=== PATIENT | female | born 1970 | race Caucasian/White ===

== ENCOUNTER 2016-10-04 11:34 | Emergency (ER) | payer OTHER ==
[~2016-10-04] VITALS: Ht 172.7 cm; Wt 81.7 kg
[~2016-10-04 11:34] MED LIST: IMURAN50 MG PO; LOESTRIN FE 1-1 EACH PO; NORCO 5-325 TA1 EACH PO; PLAQUENIL200 MG PO; PRILOSEC20 MG PO; VALIUM5 MG PO; VITAMIN B-2100 MG PO
== END 2016-10-04 13:00 | disposition home or self-care (01) ==
LOC: ED 11:34
DX: R10.31 Right lower quadrant pain (principal); M32.9 Systemic lupus erythematosus, unspecified; M35.00 Sjogren syndrome, unspecified; Z88.0 Allergy status to penicillin; Z88.1 Allergy status to other antibiotic agents; Z88.2 Allergy status to sulfonamides; Z79.899 Other long term (current) drug therapy
CPT/HCPCS: 80053; 81001; 82150; 83690; 84703; 85025; 96374; 99283; J1885; J7040

== ENCOUNTER 2017-11-08 11:03 | Emergency (ER) | payer OTHER ==
[~2017-11-08] VITALS: Ht 172.7 cm; Wt 84.8 kg
[2017-11-08] MEDS ORDERED: LIALDA1.2 GM PO (11:22)
[2017-11-08] MEDS ORDERED: CLEOCIN HCL300 MG PO (11:27)
[2017-11-08] MEDS ORDERED: DILAUDID2 MG PO (12:58)
[2017-11-09] MEDS ORDERED: DILAUDID2 MG PO (14:48)
[2017-11-09] MEDS ORDERED: ONDANSETRON ODT8 MG PO (15:21)
== END 2017-11-08 13:14 | disposition home or self-care (01) ==
LOC: ED 11:03
DX: K11.21 Acute sialoadenitis (principal); Z88.0 Allergy status to penicillin; Z88.2 Allergy status to sulfonamides; Z91.040 Latex allergy status; Z88.1 Allergy status to other antibiotic agents; Z79.899 Other long term (current) drug therapy
CPT/HCPCS: 80053; 85025; 96361; 96365; 96375; 99284; J1170; J1885; J7030

== ENCOUNTER 2017-11-09 12:11 | Emergency (ER) | payer OTHER ==
[~2017-11-09] VITALS: Ht 172.7 cm; Wt 81.7 kg
[~2017-11-09 12:11] MED LIST changes: +CLEOCIN HCL300 MG PO; +DILAUDID2 MG PO; +LIALDA1.2 GM PO
[2017-11-09] MEDS ORDERED: DILAUDID2 MG PO (14:48)
[2017-11-09] MEDS ORDERED: ONDANSETRON ODT8 MG PO (15:21)
== END 2017-11-09 15:16 | disposition home or self-care (01) ==
LOC: ED 12:11
DX: K11.20 Sialoadenitis, unspecified (principal); Z88.0 Allergy status to penicillin; Z88.2 Allergy status to sulfonamides; Z91.040 Latex allergy status; Z88.1 Allergy status to other antibiotic agents
CPT/HCPCS: 76536; 85025; 96361; 96365; 96375; 99284; J1170; J1885; J2405; J3490; J7030

== ENCOUNTER 2023-02-02 09:20 | Day surgery (SDC) | payer OTHER ==
[2023-01-28 14:42] VITALS: BP 131/91
--- NOTE | 2023-01-29 12:40 | NUR ---
ABNORMAL LAB RESULTS INCLUDING LOW POTASSIUM 3.2 NOTED ON PRE OP. REVIEWED BY X RAY SERVICE ENGINEER, DENISSE REGALADO. FAXED TO DR KNUTSON AND PT PCP MERCEDES CANTU, PAC
[~2023-02-02] VITALS: Ht 172.7 cm; Wt 88.0 kg
[~2023-02-02 09:20] MED LIST changes: +GABAPENTIN300 MG PO; +HYDROCODON-ACE1 EA11 PO; +ONDANSETRON ODT8 MG PO; +SINGULAIR10 MG PO; +VITAMIN C1000 MG PO; +VITAMIN D350 MCG PO
[2023-02-02 09:38] VITALS: BP 116/84
[2023-02-02] MEDS ORDERED: ONDANSETRON ODT8 MG PO (10:04)
[2023-02-02] MEDS ORDERED: CYMBALTA30 MG PO (10:04)
[2023-02-02] MEDS ORDERED: IMITREX20 MG NAS (10:05)
[2023-02-02] MEDS ORDERED: HYDROCODON-ACE1 EA11 PO (12:42)
[2023-02-02] MEDS ORDERED: DICLOFENAC SODI75 MG PO (12:42)
--- NOTE | 2023-02-02 12:58 | NUR ---
02/02/23 1258 Amparo Rahman 1248 PT TO PACU SLEEPING ORAL AIRWAY IN PLACE. O2 VIA MASK. FOGGING NOTED IN MASK.
[2023-02-02 13:44] VITALS: BP 135/80
--- NOTE | 2023-02-02 13:52 | NUR ---
1340: PT ARRIVES BACK TO DS RM 3 VIA STRETCHER WITH EYES CLOSED. PT AROUSES BY SHAKING HEAD NO WHEN ASKED ABOUT PAIN. PT COFIRMS THAT RIGHT ARM IS NUMB WITH NO TINGLING. PT UNABLE TO LIFT RIGHT ARM, ABLE TO WIGGLE FINGERS. SLING IN PLACE WITH PILLOW CASE BARRIER AND CRYCUFF. PT DENIES NAUSEA. FAMILY AT BEDSIDE ON ARRIVAL, EDUARDO HINOJOSA TUCKED UNDER BLANKETS.
--- NOTE | 2023-02-02 14:10 | OR ---
[facility] [address] [place], [place] [address] Signed DATE OF OPERATION: 02/02/2023 SURGEON: Mahendra Rahman MD PREOPERATIVE DIAGNOSIS: Partial rotator cuff tear, right. POSTOPERATIVE DIAGNOSIS: Partial rotator cuff tear, right. PROCEDURE PERFORMED: Right shoulder arthroscopy with rotator cuff repair. CATERING MANAGER: Trista Montana PA-C. Trista was present and critical for all portions of procedure. ANESTHESIA: General. BLOOD LOSS: 55 mL. IMPLANTS: 4.75 SwiveLock anchor with FiberTape. BRIEF HISTORY: Jennifer is a 53-year-old female with progressive worsening shoulder pain, nonresponsive to nonoperative treatment. The risks and benefits of operative intervention were discussed with her and she elected to proceed. Once consent was obtained, she was taken to the operating room. After adequate anesthesia, she was placed in a beach chair position. All downside pressure points were well padded. The right shoulder was prepped and draped in the standard sterile fashion. The shoulder was injected with 15 mL of 0.25% Marcaine as was the subacromial space. Standard posterior portal was established and the scope was introduced in the shoulder. ARTHROSCOPIC FINDINGS: Glenohumeral surfaces were intact. Biceps, biceps anchor and labrum were intact. There was an extensive undersurface tear of the rotator cuff involving about a cm and a half anterior-posterior length and about 75% depth. The subacromial space showed no Electronically Signed By: MAHENDRA RAHMAN MD 02/02/23 1410 PATIENT NAME: JENNIFER COOK OPERATIVE REPORT DATE OF : 70 REPORT #: [id number] PHYSICIAN: MAHENDRA RAHMAN MD PCP: ALLISON CANTU PAC REPORT IS CONFIDENTIAL AND NOT TO BE RELEASED WITHOUT AUTHORIZATION [facility] [address] [place], [place] [address] Signed significant rotator cuff tear. The bursa was mildly inflamed. The undersurface of the acromion was type 1. DESCRIPTION OF OPERATION: Diagnostic arthroscopy was undertaken as noted above. The rotator cuff partial tear was marked with a spinal needle. The bursa was then removed using a combination of the Mitek VAPR and the shaver. The superior surface of the rotator cuff was found to be intact. The scope was then withdrawn, placed back into the shoulder and anterior portal was established. The tear was further debrided to allow visualization. The tear was fairly extensive and the scope was placed back into the subacromial space and the tear was then completed and the cuff margins were debrided. The tuberosity was debrided well to a good bony bleeding surface. #2 FiberTape was then placed in an inverted mattress configuration and using a 4.75 anchor was anchored to the tuberosity with excellent coaptation of the tendon to the bone. The suture ends were cut. The shoulder was taken through range of motion and found to be stable repair. The scope was then withdrawn. Portals were closed with 3-0 nylon and dressed with Allevyn and OpSite. She tolerated the procedure well. All sponge, needle, and instrument counts were correct. Mahendra Rahman MD BA/MODL /[id number] Copies: ~ Electronically Signed By: MAHENDRA RAHMAN MD 02/02/23 1410 PATIENT NAME: JENNIFER COOK OPERATIVE REPORT DATE OF : 70 REPORT #: [id number] PHYSICIAN: MAHENDRA RAHMAN MD PCP: ALLISON CANTU PAC REPORT IS CONFIDENTIAL AND NOT TO BE RELEASED WITHOUT AUTHORIZATION
--- NOTE | 2023-02-02 14:25 | NUR ---
PT DAUGHTER WALKS TO NURSING STATION TO STATE THAT MOTHER WANTS JELLO. DAUGHTER STATES SHE CAN TAKE IT TO PT.
[2023-02-02 14:42] VITALS: BP 127/78
[2023-02-02 15:10] VITALS: BP 114/77
--- NOTE | 2023-02-02 15:40 | NUR ---
1442: PT RESTING IN BED AWAKE AND ALERT. PT TOLERATES JELLO AND ICED WATER WITH NO NAUSEA. PT CONT TO RATE PAIN IN RIGHT SHOULDER 0/10 AND THAT IT IS COMPLETELY NUMB BUT HAS A TINGLING SENSATION IN RIGHT THUMB. FAMILY EXITS ROOM AT THIS TIME AND PT STATES SHE WOULD LIKE TO TRY VOIDING ONCE SPOUSE IS BACK IN ROOM. CALL LIGHT WITHIN REACH. 1500: SPOUSE BACK IN THE ROOM AND PT SITS AT SIDE OF BED WITH RN ASSIST. PT DENIES ANY DIZZINESS OR NAUSEA WITH POSITION CHANGE. SHOULDER IMMOBILIZER FIT TO PT AND EDUCATED HOW TO WEAR WITH BOTH STRAPS IN PLACE AND RIGHT WRIST SUPPORTED. PT AMBULATES WITH STEADY GAIT AND RN ASSIST TO BATHROOM. PT ABLE TO VOID 250 MLS YELLOW URINE WITH NO PROBLEMS AND AMBULATES BACK TO DS RM 3 WITH RN ASSIST.
--- NOTE | 2023-02-02 16:16 | NUR ---
1310: THIS RN ASSISTS PT DRESSED AND DC INSTRUCTIONS PRESENTED VERBALLY AND WRITTEN TO PT AND SPOUSE. PT DC'S VIA WC FROM DS RM 3 TO SPOUSE IN PERSONAL VEHICLE AT HOSPITAL ENTRANCE TO HOME.
== END 2023-02-02 15:20 | disposition home or self-care (01) ==
LOC: DS 09:20
PROVIDERS: ATTEND Specialist
PROC: 0LQ14ZZ Repair Right Shoulder Tendon, Percutaneous Endoscopic Approach (ICD-10-PCS; principal; 2023-02-02 12:35)
DX: M75.111 Incomplete rotator cuff tear or rupture of right shoulder, not specified as traumatic (principal); Z88.0 Allergy status to penicillin; Z88.1 Allergy status to other antibiotic agents; Z79.899 Other long term (current) drug therapy
CPT/HCPCS: 01630; 64415; 76942; C1713; J0330; J0690; J1100; J1885; J2001; J2250; J2405; J2704; J2765; J2795; J3010; J7121